=== PATIENT | female | born 1985 | race Two or more races ===

== ENCOUNTER 2020-04-05 10:53 | Outpatient (REF) | payer OTHER, SELFPAY ==
--- NOTE | 2020-04-05 10:58 | XR_ITS ---
EXAMINATION: XR FOOT, LEFT CLINICAL INFORMATION: Pain left great toe COMPARISON: None TECHNIQUE: AP, lateral, and oblique views of the left foot. FINDINGS: Bone alignment is normal. No fracture or dislocation is seen. Joint spaces are normal. Soft tissues are normal. XR/XR foot LT min 3V IMPRESSION: Normal left foot.
== END 2020-04-05 10:54 | disposition home or self-care (01) ==
LOC: HO.HMGCX 10:53
PROVIDERS: PCP Internal Medicine; Visit Provider Nurse Practitioner Family
DX: M79.675 Pain in left toe(s) (principal)
CPT/HCPCS: 73630

== ENCOUNTER 2020-06-30 11:14 | Outpatient (REF) | payer OTHER, SELFPAY ==
--- NOTE | ~2020-06-30 | XR_ITS ---
EXAMINATION: XR HAND, LEFT CLINICAL INFORMATION: Pain left digits COMPARISON: None TECHNIQUE: PA, lateral, and oblique views of the left hand. FINDINGS: There is no visible acute or healing fracture, dislocation, or destructive process. Bony mineralization normal. There is no joint narrowing or erosive change. No focal soft tissue swelling appreciated. XR/XR hand LT min 3V IMPRESSION: Normal left hand.
[2020-06-30 14:49] LABS: TSH reflex Free T4 0.86 uIU/mL (0.32-4.0)
== END 2020-06-30 11:15 | disposition home or self-care (01) ==
LOC: HO.HMGCX 11:14
PROVIDERS: PCP Internal Medicine; Visit Provider Nurse Practitioner Family
DX: M79.642 Pain in left hand (principal); E03.9 Hypothyroidism, unspecified
CPT/HCPCS: 36415; 73130; 84443

== ENCOUNTER 2020-11-03 11:03 | Outpatient (REF) | payer OTHER, SELFPAY ==
[2020-11-03 13:55] LABS: MANUAL DIFF FLAG NO
[2020-11-03 13:58] LABS: Basophils Percent Auto 0.5 % (0-2); Eosinophils Absolute Auto 0.2 X10*3/uL (0.0-0.4); Eosinophils Percent Auto 2.2 % (0-4); Hematocrit 31.7 % (37-47); Hemoglobin 9.3 g/dl (12.0-16.0); Imm Gran Abs Auto 0.03 X10*3/uL (0.00-0.03); Imm Gran Pct Auto 0.4 % (0.0-0.4); Lymphocytes Absolute Auto 1.2 X10*3/uL (1.2-4.9); Lymphocytes Percent Auto 16.3 % (20-40); Mean Corpuscular HGB Conc 29.3 g/dl (31.0-35.0); Mean Corpuscular Hemoglobin 22.2 pg (27.0-33.0); Mean Corpuscular Volume 75.8 fL (80-98); Monocytes Absolute Auto 0.5 X10*3/uL (0.1-1.2); Monocytes Percent Auto 7.3 % (2-11); Neutrophils Absolute Auto 5.4 X10*3/uL (2.0-8.3); Neutrophils Percent Auto 73.3 % (45-73); Platelet Count 320 X10*3/uL (160-400); Red Blood Count 4.18 X10*6/uL (4.20-5.50); Red Cell Distribution Width 16.1 % (11.0-16.0); White Blood Count 7.3 X10*3/uL (4.8-10.8)
[2020-11-03 14:27] LABS: Carbon Dioxide 23 mmol/L (22-29); Chloride 107 mmol/L (96-108); Potassium 4.3 mmol/L (3.3-5.1); Sodium 139 mmol/L (135-145)
[2020-11-03 14:28] LABS: Alanine Aminotransferase 8 U/L (0-31); Albumin Level 4.2 g/dL (3.5-5.0); Alkaline Phosphatase 49 U/L (39-117); Anion Gap 13 (12-20); Aspartate Amino Transferase 13 U/L (5-31); Bilirubin Total 0.5 mg/dL (0.0-1.0); Blood Urea Nitrogen 12 mg/dL (9-16); Calcium 9.1 mg/dL (8.4-10.2); Estimated Glomerular Filt Rate > 60; Glucose Random 79 mg/dL (60-115); Total Protein 7.6 g/dL (6.5-8.0)
[2020-11-03 14:52] LABS: TSH reflex Free T4 1.01 uIU/mL (0.32-4.0)
== END 2020-11-03 11:04 | disposition home or self-care (01) ==
LOC: HO.HMGCLDS 11:03
PROVIDERS: PCP Internal Medicine; Visit Provider Internal Medicine
DX: D64.9 Anemia, unspecified (principal); E03.9 Hypothyroidism, unspecified; Z91.09 Other allergy status, other than to drugs and biological substances
CPT/HCPCS: 36415; 80053; 84443; 85025

== ENCOUNTER 2021-03-25 11:43 | Outpatient (REF) | payer OTHER, SELFPAY | END 2021-03-25 11:44 | disposition home or self-care (01) | LOC: HO.LAB 11:43 | PROVIDERS: PCP Internal Medicine; Visit Provider Internal Medicine | DX: Z20.822 Contact with and (suspected) exposure to COVID-19 (principal) | CPT/HCPCS: C9803; U0003; U0005 ==

== ENCOUNTER 2021-04-10 20:11 | Emergency (ER) | payer OTHER, SELFPAY ==
--- NOTE | ~2021-04-10 | XR_ITS ---
EXAMINATION: XR CHEST CLINICAL INFORMATION: Cough shortness of breath COMPARISON: Prior chest November 2009 TECHNIQUE: Frontal view of the chest was obtained. FINDINGS: No significant abnormality is noted involving the heart, lungs, mediastinum, bony thorax or soft tissues. XR/XR chest 1V IMPRESSION: Unremarkable examination.
[2021-04-10 20:51] VITALS: BP 149/81; PULSE 84; RESP 17; TEMP 36.7; O2SAT 95; BMI 24.9
[2021-04-10 23:29] VITALS: BP 137/94; PULSE 75; RESP 17; TEMP 37; O2SAT 97
--- NOTE | 2021-04-10 23:35 | ED_ITS ---
HPI - URI/Sore Throat General Chief Complaint: Upper Respiratory Symptoms Stated Complaint: congestion, +covid 03/28 Time Seen by Provider: 04/10/21 23:12 Source: patient Mode of arrival: ambulatory Limitations: no limitations History of Present Illness HPI Narrative: Patient presents to ED coughing, wheezing. Patient states history of asthma has no albuterol inhaler at home. Patient was positive for COVID on March 25 2021. Patient denies any pleuritic chest pain, leg swelling, calf pain, coughing up blood, or shortness of breath on exertion. Related Data Previous Rx's Medication Instructions Recorded cetirizine 10 mg capsule (Zyrtec) 10 mg PO DAILY PRN 90 Days #90 cap 05/18/20 acetaminophen 500 mg tablet 1,000 mg PO Q6H PRN #60 tab 09/20/20 cyclobenzaprine 5 mg tablet 5 mg PO TID PRN #15 tab 09/20/20 ferrous sulfate 324 mg (65 mg 324 mg PO BID 90 Days #180 tab 11/29/20 iron) tablet,delayed release gabapentin 100 mg capsule 100 mg PO BEDTIME 90 Days #90 cap 01/26/21 levothyroxine 50 mcg capsule 50 mcg PO DAILY 90 Days #90 cap 03/18/21 albuterol sulfate 90 mcg/actuation 2 puff INHALATION Q6H PRN #8.5 g 04/10/21 aerosol inhaler prednisone 20 mg tablet 40 mg PO DAILY 5 Days #10 tab 04/10/21 Allergies Allergy/AdvReac Type Severity Reaction Status Date / Time aspirin Allergy Unknown SWELLING, Verified 04/10/21 20:51 facial edema Review of Systems Review of Systems: Yes all other systems are reviewed and are negative Constitutional: Constitutional: Reports as per HPI and Reports no additional constitutional complaints Eyes: Eyes: Reports as per HPI and Reports no additional eye complaints ENT: Reports system reviewed and no additional complaints, except as documented and Reports as per HPI Cardiovascular: Cardiovascular: Reports as per HPI, Reports no additional cardiovascular complaints, Denies chest pain and Denies dyspnea Respiratory: Respiratory: Reports as per HPI, Reports no additional respiratory complaints, Reports no additional respiratory complaints, Reports cough, Denies pain on inspiration, Denies pain with cough, Denies dyspnea and Reports wheezing Gastrointestinal: Gastrointestinal: Reports as per HPI and Reports no additional gastrointestinal complaints Genitourinary: Genitourinary: Reports no additional female genitourinary complaints and Reports as per HPI Musculoskeletal: Musculoskeletal: Reports no additional musculoskeletal complaints and Reports as per HPI Neurologic: Reports system reviewed and no additional complaints, except as documented and Reports as per HPI Psychiatric: Psychiatric: Reports no additional psychiatric complaints and Reports as per HPI Allergic/Immunologic: Allergic/Immunologic: Reports wheezing [facility] Past Medical History Surgical History History of bilateral tubal ligation History of partial thyroidectomy Family History Family History Father No problems noted. Mother No problems noted. Sister Diabetes mellitus Maternal Grandmother No problems noted. Maternal Grandfather No problems noted. Paternal Grandfather No problems noted. Paternal Grandmother No problems noted. Brother No problems noted. Brother No problems noted. Brother No problems noted. Brother No problems noted. Brother No problems noted. Sister No problems noted. Sister No problems noted. Sister No problems noted. Sister No problems noted. Son No problems noted. Daughter No problems noted. Daughter No problems noted. Other Mental health disorder Substance use disorder Social History Social History Housing: House Patient Tobacco Use Status: Never used Tobacco Second Hand Smoke Exposure: No Advance Directives: No Advance Directives Information Provided: Yes Patient : No Current occupational status: unemployed Physical Exam Vital Signs: Vital Signs: Last Vital Signs Temp 98.6 F 04/10/21 23:29 Pulse 75 04/10/21 23:29 Resp 17 04/10/21 23:29 BP 137/94 H 04/10/21 23:29 Pulse Ox 97 04/10/21 23:29 BMI result Body Mass Index 24.9 Const: General: cooperative and healthy appearing Orientation/consciousness: patient oriented x3 HENMT: Head: Yes normal to inspection, Yes No palpable skull fracture present, Yes normocephalic and Yes atraumatic Eyes: General: appearance normal, both eyes and all related structures Neck: Neck: Yes normal visual inspection, Yes full ROM, Yes no lymphadenopathy, Yes no meningeal signs, Yes trachea midline, Yes supple, No anterior neck swelling and No tender Chest: Chest palpation & inspection: normal inspection of the chest and normal palpation of entire chest wall Resp: Effort & Inspection: normal respiratory effort and able to speak in complete sentences Auscultation: wheezes expiratory wheezes (mild) Cardio: Jugular venous distension: no JVD Heart sounds: S1 normal heart sound present and S2 normal heart sound present GI: Inspection: Yes normal to inspection and No abdominal wall ecchymosis Palpation (GI): Soft to palpation, not firm, nontender, no guarding and not rigid : General: No CVA tenderness and Yes no CVA tenderness Back/Spine/Pelvis: Back: no CVA tenderness, No CVA tenderness and No back tenderness Skin: General skin exam: no rashes or lesions noted and elasticity normal Neuro: General: patient oriented x3, gait normal, no meningeal signs and CN's II-XI intact bilaterally Cranial nerves: Yes CN's II-XII intact bilaterally Extrem: Other: Lower extremities negative for swelling, pitting edema, or calf tenderness Psych: Appearance: grossly normal, well kempt and not disheveled Course Course Course Narrative: Patient will have x-ray ordered. Reevaluation(s) Reevaluation #1: X-ray negative for pneumonia. Patient is not tachycardic or tachypneic. Not suspecting PE. Chest x-ray negative pneumonia. Patient is 16 days out from COVID diagnosis. patient not in respiratory failure. Patient will be discharged with albuterol and steroid Time: 23:43 MDM - URI/Sore Throat MDM Narrative Medical decision making narrative: Chronic COVID symptoms. Asthma Discharge Plan Discharge Clinical Impression: COVID-19 long hauler manifesting chronic cough Patient Disposition: Home, Self-Care Instructions: Asthma (ED), Chronic Cough (ED) Additional Instructions: Yet x-ray came back negative for pneumonia. Albuterol inhaler and steroid was sent to pharmacy. Return to the ED immediately if he had pleuritic chest pain, shortness of breath on exertion, leg swelling, calf pain, coughing up blood, weakness, dizziness, intractable fever, chills, or any other concerning symptoms. Prescriptions: New prednisone 20 mg tablet 40 mg PO DAILY 5 Days Qty: 10 RF: 0 albuterol sulfate 90 mcg/actuation HFA aerosol inhaler 2 puff inhalation Q6H PRN (Reason: shortness of breath or wheezing) Qty: 8.5 RF: 0 No Action Zyrtec 10 mg capsule 10 mg PO DAILY PRN (Reason: allergy symptoms) 90 Days Qty: 90 RF: 0 ferrous sulfate 324 mg (65 mg iron) tablet,delayed release (DR/EC) 324 mg PO BID 90 Days Qty: 180 RF: 0 gabapentin 100 mg capsule 100 mg PO BEDTIME 90 Days Qty: 90 RF: 0 acetaminophen 500 mg tablet 1,000 mg PO Q6H PRN (Reason: pain) Qty: 60 RF: 0 cyclobenzaprine 5 mg tablet 5 mg PO TID PRN (Reason: muscle spasm) Qty: 15 RF: 0 levothyroxine 50 mcg capsule 50 mcg PO DAILY 90 Days Qty: 90 RF: 1 Stand Alone Forms: Work/School Release Interventions: ED Discharge Assessment Last Done: 04/11/21 00:05 Discharge Date/Time: 04/11/21 00:06 Print Language: Sami
== END 2021-04-11 00:06 | disposition home or self-care (01) ==
PROVIDERS: Emergency Provider Student in an Organized Health Care Education/Training Program; PCP Internal Medicine
DX: R05.3 Chronic cough (principal); U09.9 Post COVID-19 condition, unspecified; J45.909 Unspecified asthma, uncomplicated
CPT/HCPCS: 71045; 99283; 99284

== ENCOUNTER 2021-06-01 14:36 | Outpatient (REF) | payer OTHER, SELFPAY ==
--- NOTE | ~2021-06-01 | XR_ITS ---
EXAMINATION: XR SACRUM AND COCCYX CLINICAL INFORMATION: M53.3 - Sacrococcygeal disorders, not elsewhere classified COMPARISON: Radiographs lumbosacral spine 03/18/2019, chest radiograph 04/10/2021 TECHNIQUE: The sacrum and coccyx are imaged in 2 frontal views and a lateral view for a total of 3 views. FINDINGS: There is transitional vertebrae at L5 with bilateral sacralization similar to the prior radiographs 2019. The sacrum and coccyx show normal mineralization with no fracture or destructive process. There is no spondylolisthesis lumbosacral junction. No retrolisthesis. The SI joints show no ankylosis or erosive changes or subchondral sclerosis. Visualized hips and pubis are unremarkable.. XR/XR sacrum coccyx min 2V IMPRESSION: 1. Transitional vertebrae L5 with bilateral sacralization similar to prior radiographs 2019. 2. Unremarkable bilateral SI joints. Sacrum/coccyx unremarkable.
== END 2021-06-01 14:37 | disposition home or self-care (01) ==
LOC: HO.HMGCX 14:36
PROVIDERS: PCP Internal Medicine; Visit Provider Internal Medicine
DX: M53.3 Sacrococcygeal disorders, not elsewhere classified (principal)
CPT/HCPCS: 72220

== ENCOUNTER 2021-11-16 10:46 | Outpatient (REF) | payer OTHER, SELFPAY ==
[2021-11-16 13:41] LABS: MANUAL DIFF FLAG NO
[2021-11-16 13:44] LABS: Basophils Percent Auto 0.6 % (0-2); Eosinophils Absolute Auto 0.3 X10*3/uL (0.0-0.4); Eosinophils Percent Auto 3.7 % (0-4); Hemoglobin 11.4 g/dl (12.0-16.0); Imm Gran Abs Auto 0.01 X10*3/uL (0.00-0.03); Imm Gran Pct Auto 0.1 % (0.0-0.4); Lymphocytes Absolute Auto 1.2 X10*3/uL (1.2-4.9); Lymphocytes Percent Auto 17.9 % (20-40); Mean Corpuscular HGB Conc 31.7 g/dl (31.0-35.0); Mean Corpuscular Hemoglobin 26.3 pg (27.0-33.0); Mean Corpuscular Volume 82.9 fL (80.0-98.0); Mean Platelet Volume 9.8 fL (9.4-12.3); Monocytes Absolute Auto 0.6 X10*3/uL (0.1-1.2); Neutrophils Absolute Auto 4.6 x10*3/uL (2.0-8.3); Neutrophils Percent Auto 68.7 % (45-73); Platelet Count 381 X10*3/uL (160-400); Red Blood Count 4.34 X10*6/uL (4.20-5.50); Red Cell Distribution Width 14.4 % (11.0-16.0); White Blood Count 6.7 X10*3/uL (4.8-10.8)
[2021-11-16 14:08] LABS: Alanine Aminotransferase 17 U/L (0-31); Alkaline Phosphatase 50 U/L (39-117); Anion Gap 8 (12-20); Aspartate Amino Transferase 16 U/L (5-31); Bilirubin Total 0.5 mg/dL (0.0-1.0); Blood Urea Nitrogen 10 mg/dL (9-16); Calcium 8.8 mg/dL (8.4-10.2); Carbon Dioxide 28 mmol/L (22-29); Chloride 109 mmol/L (96-108); Estimated Glomerular Filt Rate > 60; Glucose Random 91 mg/dL (60-115); Potassium 4.2 mmol/L (3.3-5.1); Sodium 141 mmol/L (135-145); Total Protein 7.3 g/dL (6.5-8.0)
[2021-11-16 14:21] LABS: Ferritin 5 ng/mL (10-122); TSH reflex Free T4 0.97 uIU/mL (0.32-4.0)
== END 2021-11-16 10:47 | disposition home or self-care (01) ==
LOC: HO.HMGCLDS 10:46
PROVIDERS: Visit Provider Internal Medicine
DX: E03.9 Hypothyroidism, unspecified (principal); R53.83 Other fatigue
CPT/HCPCS: 36415; 80053; 82728; 84443; 85025

== ENCOUNTER 2022-03-07 08:13 | Emergency (ER) | payer OTHER, SELFPAY ==
--- NOTE | ~2022-03-07 | XR_ITS ---
EXAMINATION: XR CHEST CLINICAL INFORMATION: Cough for 2 weeks. COMPARISON: 04/10/2021 chest radiograph. TECHNIQUE: 2 views of the chest were obtained. FINDINGS: No significant abnormality is noted involving the heart, lungs, mediastinum, bony thorax or soft tissues. XR/XR chest 2V IMPRESSION: No acute cardiopulmonary process.
[2022-03-07 08:16] VITALS: BP 150/100; PULSE 101; RESP 20; TEMP 36.7; O2SAT 96; BMI 26.9
[2022-03-07 08:31] LABS: MANUAL DIFF FLAG NO
[2022-03-07 08:33] LABS: Basophils Absolute Auto 0.1 X10*3/uL (0.0-0.2); Basophils Percent Auto 0.8 % (0-2); Eosinophils Absolute Auto 0.6 X10*3/uL (0.0-0.4); Eosinophils Percent Auto 7.3 % (0-4); Hematocrit 38.3 % (37.0-47.0); Hemoglobin 12.3 g/dl (12.0-16.0); Imm Gran Abs Auto 0.02 X10*3/uL (0.00-0.03); Imm Gran Pct Auto 0.3 % (0.0-0.4); Lymphocytes Absolute Auto 1.5 X10*3/uL (1.2-4.9); Lymphocytes Percent Auto 19.7 % (20-40); Mean Corpuscular HGB Conc 32.1 g/dl (31.0-35.0); Mean Corpuscular Hemoglobin 26.5 pg (27.0-33.0); Mean Corpuscular Volume 82.5 fL (80.0-98.0); Monocytes Absolute Auto 0.5 X10*3/uL (0.1-1.2); Monocytes Percent Auto 6.3 % (2-11); Neutrophils Percent Auto 65.6 % (45-73); Platelet Count 338 X10*3/uL (160-400); Red Blood Count 4.64 X10*6/uL (4.20-5.50); Red Cell Distribution Width 14.2 % (11.0-16.0); White Blood Count 7.7 X10*3/uL (4.8-10.8)
[2022-03-07 08:56] LABS: COVID-19 Test Negative (Negative); IDNOW Serial# 16C4AD1C
[2022-03-07 08:57] LABS: Influenza A Negative (Negative); Influenza B2 Positive (Negative)
[2022-03-07 13:42] LABS: Anion Gap 10 (12-20); Blood Urea Nitrogen 9 mg/dL (9-16); Calcium 9.2 mg/dL (8.4-10.2); Carbon Dioxide 25 mmol/L (22-29); Chloride 107 mmol/L (96-108); Creatinine Clr Calc Pharmacy 107.5; Estimated Glomerular Filt Rate > 60; Glucose Random 130 mg/dL (60-115); Potassium 4.1 mmol/L (3.3-5.1); Sodium 138 mmol/L (135-145)
--- NOTE | 2022-03-07 14:13 | ED.SOB ---
HPI - SOB/Dyspnea General Chief Complaint: Dyspnea Stated Complaint: SOB/Cough Time Seen by Provider: 03/07/22 13:58 Source: patient Mode of arrival: ambulatory Limitations: no limitations History of Present Illness HPI Narrative: Patient is a 36-year-old female who presents to the emergency department for evaluation of cough and shortness of breath. Onset of symptoms was approximately 2 weeks ago. She states that she has not been getting any better. She does report a history of asthma, requiring albuterol inhaler only when she needs it. At home she does not have any inhalers or nebulizers currently. She denies any fevers, chills, nasal congestion, sore throat, ear pain, chest pain, nausea, vomiting, abdominal pain, numbness or tingling of the extremities, generalized weakness. Denies any known sick contacts. She does report that she has been having intermittent flares of her asthma since having COVID-19 1 year ago. Related Data Previous Rx's Medication Instructions Recorded mometasone-formoterol HFA 200 2 puff inhalation Q12H 30 days #13 05/03/21 mcg-5 mcg/actuation aerosol grams inhaler (Dulera) albuterol sulfate 90 mcg/actuation 2 puff inhalation Q6H PRN for 08/23/21 aerosol inhaler (ProAir HFA) wheezing #8.5 ea ferrous sulfate 324 mg (65 mg 324 mg PO BID 90 days #180 tabs 11/29/21 iron) tablet,delayed release levothyroxine 50 mcg capsule 50 mcg PO DAILY 90 days #90 caps 11/29/21 albuterol sulfate 90 mcg/actuation 2 puff inhalation Q4-6H PRN 03/07/22 aerosol inhaler shortness of breath or wheezing 10 days #6.7 grams oseltamivir 75 mg capsule 75 mg PO BID 5 days #10 caps 03/07/22 prednisone 20 mg tablet 40 mg PO DAILY #10 tabs 03/07/22 Allergies Allergy/AdvReac Type Severity Reaction Status Date / Time aspirin Allergy Unknown SWELLING, Verified 11/16/21 09:47 facial edema Review of Systems Review of Systems: Constitutional : No Fever, No Chills ENT/Mouth : No Hoarseness, No sore throat, No Rhinorrhea Eyes: No Redness, No Discharge, No Vision Changes Cardiovascular : No Chest Pain, positive SOB, no Dyspnea on Exertion, No Edema Respiratory : positive Cough, No Sputum, positive Wheezing, Gastrointestinal : No Nausea, No Vomiting, No Diarrhea, No abdominal Pain Genitourinary : No Dysuria, No Hematuria Musculoskeletal : No joint pain, No Myalgias Skin : No rash Neuro : No Weakness, No Numbness, No Headache Psych : No anxiety, depression Heme/Lymph: No Bruising, No Bleeding Endocrine : No Polyuria, No Polydipsia Yes all other systems are reviewed and are negative PMFSH Past Medical History Attestation statement: The following information was validated with the patient. Source: old records reviewed Surgical History History of bilateral tubal ligation History of partial thyroidectomy Family History Family History Father No problems noted. Mother No problems noted. Sister Diabetes mellitus Maternal Grandmother No problems noted. Maternal Grandfather No problems noted. Paternal Grandfather No problems noted. Paternal Grandmother No problems noted. Brother No problems noted. Brother No problems noted. Brother No problems noted. Brother No problems noted. Brother No problems noted. Sister No problems noted. Sister No problems noted. Sister No problems noted. Sister No problems noted. Son No problems noted. Daughter No problems noted. Daughter No problems noted. Other Mental health disorder Substance use disorder Social History Social History Housing: House Patient Tobacco Use Status: Never used Tobacco Smoked in Last 30 Days: No e-Cigarette/Vaping Use: Never Used Second Hand Smoke Exposure: No Use of substances other than those prescribed or required for medical reasons: No Advance Directives: No Advance Directives Information Provided: Yes Patient : No service: No Current occupational status: unemployed Cognitive needs: No Hearing needs: No Vision needs: No Physical Exam Vital Signs: Vital Signs: Last Vital Signs Temp 98.0 F 03/07/22 08:16 Pulse 80 03/07/22 14:23 Resp 18 03/07/22 14:23 BP 136/91 H 03/07/22 14:23 Pulse Ox 97 03/07/22 14:23 O2 Del Method 03/07/22 14:23 BMI result Body Mass Index 26.9 Appearance: Alert.?Oriented to person, place and time. No acute distress.?Normal affect. Eyes: Pupils equal, round and reactive to light.? ENT: Pharynx normal.?? Neck: Normal inspection.? Neck supple.?? CVS: Heart sounds normal. Normal heart rate and rhythm.? Pulses normal.?? Respiratory: No respiratory distress. No tachypnea, no hypoxia.? Lung sounds with bilateral expiratory wheezing throughout? Abdomen: Soft and non-tender. Normoactive bowel sounds. Skin: Skin warm and dry.? Normal skin color.? Extremities: No lower extremity edema.? No calf ttp? Neuro: Moves all extremities spontaneously. Sensation intact bilaterally. No focal neuro deficits. Ambulates with normal steady gait. Course Course Course Narrative: Patient is a 36-year-old female with a past medical history of mild intermittent asthma presenting to the emergency department for shortness of breath and cough x2 weeks. The time examination she is overall well-appearing, in no apparent distress, speaking clear full sentences. She does have expiratory wheezing bilaterally. She is able to ambulate without distress. Speaking clear full sentences. Labs obtained from triage revealed overall unremarkable CBC and BMP. COVID-19 testing is negative, chest x-ray without any acute cardiopulmonary process. Influenza B testing today is positive. She does express interest in receiving Tamiflu, in addition will send her home with a prescription for albuterol inhaler as well as prednisone. Advised outpatient follow-up with her primary care provider within the next 3-5 days. Discussed worsening signs and symptoms that she should return back to the emergency department for. All questions were answered. Patient was discharged home in stable condition. MDM - SOB/Dyspnea Medical Records Attestation: I reviewed the patient's medical records. Lab Data Attestation: I reviewed the patient's lab results. Result diagrams: 03/07/22 08:25 03/07/22 08:25 Labs: Lab Results 03/07/22 03/07/22 03/07/22 Range/Units 08:23 08:23 08:25 WBC 7.7 (4.8-10.8) X10*3/uL RBC 4.64 (4.20-5.50) X10*6/uL Hgb 12.3 (12.0-16.0) g/dl Hct 38.3 (37.0-47.0) % MCV 82.5 (80.0-98.0) fL MCH 26.5 L (27.0-33.0) pg MCHC 32.1 (31.0-35.0) g/dl RDW 14.2 (11.0-16.0) % Plt Count 338 (160-400) X10*3/uL MPV 9.0 L (9.4-12.3) fL Immature Gran % (Auto) 0.3 (0.0-0.4) % Neut % (Auto) 65.6 (45-73) % Lymph % (Auto) 19.7 L (20-40) % [place] % (Auto) 6.3 (2-11) % Eos % (Auto) 7.3 H (0-4) % Baso % (Auto) 0.8 (0-2) % Lymph # (Auto) 1.5 (1.2-4.9) X10*3/uL [place] # (Auto) 0.5 (0.1-1.2) X10*3/uL Eos # (Auto) 0.6 H (0.0-0.4) X10*3/uL Baso # (Auto) 0.1 (0.0-0.2) X10*3/uL Abs Immat Gran (auto) 0.02 (0.00-0.03) X10*3/uL Absolute Neuts (auto) 5.0 (2.0-8.3) x10*3/uL Absolute Nucleated RBC 0.000 (0.0-0.012) X10*3/uL Nucleated RBC % (auto) 0.0 (0.0-0.2) /100WBC Sodium (135-145) mmol/L Potassium (3.3-5.1) mmol/L Chloride (96-108) mmol/L Carbon Dioxide (22-29) mmol/L Anion Gap (12-20) BUN (9-16) mg/dL Creatinine (0.5-1.4) mg/dL Estim Creat Clear Calc Estimated GFR Random Glucose (60-115) mg/dL Calcium (8.4-10.2) mg/dL COVID-19 ([facility]) Negative (Negative) COVID-19 Clin Com See Note Influenza Type A ([facility]) Negative (Negative) Influenza Type B ([facility]) Positive A (Negative) Influenza A & B Note See Note 03/07/22 Range/Units 08:25 WBC (4.8-10.8) X10*3/uL RBC (4.20-5.50) X10*6/uL Hgb (12.0-16.0) g/dl Hct (37.0-47.0) % MCV (80.0-98.0) fL MCH (27.0-33.0) pg MCHC (31.0-35.0) g/dl RDW (11.0-16.0) % Plt Count (160-400) X10*3/uL MPV (9.4-12.3) fL Immature Gran % (Auto) (0.0-0.4) % Neut % (Auto) (45-73) % Lymph % (Auto) (20-40) % [place] % (Auto) (2-11) % Eos % (Auto) (0-4) % Baso % (Auto) (0-2) % Lymph # (Auto) (1.2-4.9) X10*3/uL [place] # (Auto) (0.1-1.2) X10*3/uL Eos # (Auto) (0.0-0.4) X10*3/uL Baso # (Auto) (0.0-0.2) X10*3/uL Abs Immat Gran (auto) (0.00-0.03) X10*3/uL Absolute Neuts (auto) (2.0-8.3) x10*3/uL Absolute Nucleated RBC (0.0-0.012) X10*3/uL Nucleated RBC % (auto) (0.0-0.2) /100WBC Sodium 138 (135-145) mmol/L Potassium 4.1 (3.3-5.1) mmol/L Chloride 107 (96-108) mmol/L Carbon Dioxide 25 (22-29) mmol/L Anion Gap 10 L (12-20) BUN 9 (9-16) mg/dL Creatinine 0.70 (0.5-1.4) mg/dL Estim Creat Clear Calc 107.5 Estimated GFR > 60 Random Glucose 130 H (60-115) mg/dL Calcium 9.2 (8.4-10.2) mg/dL COVID-19 ([facility]) (Negative) COVID-19 Clin Com Influenza Type A ([facility]) (Negative) Influenza Type B ([facility]) (Negative) Influenza A & B Note Imaging Data Chest x-ray: Radiologist's impression: XR/XR chest 2V IMPRESSION: No acute cardiopulmonary process. Discharge Plan Discharge Clinical Impression: Influenza B Patient Disposition: Home, Self-Care Instructions: Influenza (ED) Additional Instructions: Use albuterol inhaler every 4-6 hours as needed for shortness of breath or wheezing. Take prednisone daily with food to prevent stomach upset. Tamiflu is to be taken twice daily. Return to the emergency department any new or worsening symptoms or concerns. Follow-up with your primary care provider within 3-5 days. Prescriptions: New oseltamivir 75 mg capsule 75 mg PO BID 5 Days Qty: 10 0RF prednisone 20 mg tablet 40 mg PO DAILY Qty: 10 0RF albuterol sulfate 90 mcg/actuation HFA aerosol inhaler 2 puff inhalation Q4-6H PRN (Reason: shortness of breath or wheezing) 10 Days Qty: 6.7 0RF No Action Dulera 200-5 mcg/actuation HFA aerosol inhaler 2 puff inhalation Q12H 30 Days Qty: 13 0RF albuterol sulfate [ProAir HFA] 90 mcg/actuation HFA aerosol inhaler 2 puff inhalation Q6H PRN (Reason: for wheezing) Qty: 8.5 0RF levothyroxine 50 mcg capsule 50 mcg PO DAILY 90 Days Qty: 90 1RF ferrous sulfate 324 mg (65 mg iron) tablet,delayed release (DR/EC) 324 mg PO BID 90 Days Qty: 180 0RF Referrals: Gal Noriega MD [Primary Care Provider] - Interventions: ED Discharge Assessment Last Done: 03/07/22 14:34 Discharge Date/Time: 03/07/22 14:34
--- OUTSIDE RECORDS SUMMARY | 2022-03-07 14:20 | XMS_ITS | Continuity of Care Document ---
:1985 Author Organization [facility] Address [address] [place] [id number]- Care Team Providers Name Role Phone Gal Noriega MD Primary Care Physician Encounter [facility] Date(s): 05/01/21 - 05/02/[address] [id number]- Discharge Disposition: A-D/C Walkout Attending Physician: Not on Staff, Attending MD Admitting Physician: Not on Staff, Admitting MD Referring Physician: Not on Staff, Referring MD Allergies, Adverse Reactions, Alerts Substance Reaction Severity Status aspirin Active Medications levothyroxine 0.05 mg oral tablet 1 tablet = 50 mcg, By Mouth, Daily, 0 Refills, Maintenance, 04/14/15 12:52:48 Start Date: 04/14/15 Status: Ordered Results Radiology Reports Exam Date Time Procedure Performing Provider Status 05/01/21 4:02 PM Chest 2 Views Frontal and Lat Maeve [facility]inas [facility] (Verified) Notes:(Chest 2 Views Frontal and Lat) Reason For Exam: Fever;CoughRESULT: Chest 2 Views Frontal and Lat Chest 2 Views Frontal and Lat Hx of Present Illness: covid+ 11 29, given inhaler for SOB, cont. with dry cough, SOB and CP with cough.; Reason: Cough; Fever; Clinical Question(s): Pneumonia; COMPARISON: None. FINDINGS: LINES AND TUBES: None. LUNGS AND PLEURA: Clear lungs. Normal pulmonary vascularity. No pleural effusion. No pneumothorax. HEART, MEDIASTINUM AND MARKY: Heart is normal in size. Normal upper mediastinal and hilar contour. BONES AND SOFT TISSUES: No acute abnormality. IMPRESSION: Normal chest. WSN: [id number] Ordering Physician: Jovany Snyder MD Dictated By: Rolo Witt MD Dictated Date/Time: 05/01/21 4:07 pm Reviewed By: Rolo Witt MD Signed By: Rolo Witt MD Signed Date/Time: 05/01/21 4:07 pm Transcribed By: LUCERO Transcribed Date/Time: 05/01/21 4:05 pm Vital Signs Most recent to oldest [Reference 1 2 3 Range]: Oxygen Saturation [94-100 %] 100 % 97 % 100 % (05/02/21 12:47 AM) (05/01/21 10:26 PM) (05/01/21 6:44 PM) Pulse Rate [55-90 bpm] 74 bpm 81 bpm 89 bpm (05/02/21 12:47 AM) (05/01/21 10:26 PM) (05/01/21 6:44 PM) Blood Pressure [90-138/55-84 mm 124/82 mm Hg 130/112 mm Hg 124/84 mm Hg Hg] (05/02/21 12:47 AM) (05/01/21 10:26 PM) (05/01/21 6:44 PM) Respiratory Rate [16-30 br/min] 18 br/min 18 br/min 18 br/min (05/02/21 12:47 AM) (05/01/21 10:26 PM) (05/01/21 2:57 PM) Temperature [96.8-100.4 DegF] 97.9 DegF 98.3 DegF 98 .1 DegF (05/02/21 12:47 AM) (05/01/21 10:26 PM) (05/01/21 2:57 PM) Mode of Delivery (Oxygen) Nasal cannula Room air Room a ir (05/02/21 12:47 AM) (05/01/21 10:26 PM) (05/01/21 2:57 PM) Blood pressure sites Arm, right Arm, left Arm, left (05/02/21 12:47 AM) (05/01/21 10:26 PM) (05/01/21 2:57 PM) Temperature Route Oral Oral Oral (05/02/21 12:47 AM) (05/01/21 10:26 PM) (05/01/21 2:57 PM)
[2022-03-07 14:23] VITALS: BP 136/91; PULSE 80; RESP 18; O2SAT 97
== END 2022-03-07 14:34 | disposition home or self-care (01) ==
PROVIDERS: Emergency Provider Emergency Medicine; PCP Internal Medicine
DX: J10.1 Influenza due to other identified influenza virus with other respiratory manifestations (principal); Z20.822 Contact with and (suspected) exposure to COVID-19
CPT/HCPCS: 71046; 80048; 85025; 87502; 87635; 99283; 99284

== ENCOUNTER → 2022-06-22 14:39 | Outpatient (BNVA) | payer OTHER, SELFPAY | PROVIDERS: PCP Internal Medicine; Visit Provider Hospitalist | DX: J30.9 Allergic rhinitis, unspecified (principal); J45.40 Moderate persistent asthma, uncomplicated; R06.02 Shortness of breath; Z79.899 Other long term (current) drug therapy | CPT/HCPCS: 99202 ==

== ENCOUNTER 2022-06-30 15:06 | Outpatient (REF) | payer OTHER, SELFPAY ==
[2022-06-30 15:39] LABS: MANUAL DIFF FLAG NO
[2022-06-30 15:59] LABS: Basophils Absolute Auto 0.1 X10*3/uL (0.0-0.2); Basophils Percent Auto 0.6 % (0-2); Eosinophils Absolute Auto 0.4 X10*3/uL (0.0-0.4); Eosinophils Percent Auto 4.8 % (0-4); Hematocrit 38.8 % (37.0-47.0); Hemoglobin 12.5 g/dl (12.0-16.0); Imm Gran Abs Auto 0.02 X10*3/uL (0.00-0.03); Imm Gran Pct Auto 0.2 % (0.0-0.4); Lymphocytes Absolute Auto 1.7 X10*3/uL (1.2-4.9); Lymphocytes Percent Auto 18.6 % (20-40); Mean Corpuscular HGB Conc 32.2 g/dl (31.0-35.0); Mean Corpuscular Hemoglobin 26.4 pg (27.0-33.0); Mean Corpuscular Volume 81.9 fL (80.0-98.0); Mean Platelet Volume 9.3 fL (9.4-12.3); Monocytes Absolute Auto 0.6 X10*3/uL (0.1-1.2); Monocytes Percent Auto 6.8 % (2-11); Neutrophils Absolute Auto 6.2 x10*3/uL (2.0-8.3); Platelet Count 334 X10*3/uL (160-400); Red Blood Count 4.74 X10*6/uL (4.20-5.50); Red Cell Distribution Width 14.9 % (11.0-16.0)
[2022-06-30 16:51] LABS: Erythrocyte Sedimentation Rate 7 MM/HR (0-20)
[2022-06-30 16:56] LABS: Alanine Aminotransferase 16 U/L (0-31); Albumin Level 4.1 g/dL (3.5-5.0); Alkaline Phosphatase 61 U/L (39-117); Anion Gap 11 (12-20); Aspartate Amino Transferase 16 U/L (5-31); Bilirubin Total 0.4 mg/dL (0.0-1.0); Blood Urea Nitrogen 9 mg/dL (9-16); Calcium 9.4 mg/dL (8.4-10.2); Carbon Dioxide 26 mmol/L (22-29); Chloride 107 mmol/L (96-108); Estimated Glomerular Filt Rate > 60; Glucose Random 100 mg/dL (60-115); Iron 87 mcg/dL (30-160); Percent Iron Saturation 26 % (15-50); Potassium 3.9 mmol/L (3.3-5.1); Sodium 140 mmol/L (135-145); Total Iron Binding Capacity 335 mcg/dL (228-428); Total Protein 7.3 g/dL (6.5-8.0); Unsaturated Iron Binding 248 ug/dL
[2022-06-30 17:13] LABS: TSH reflex Free T4 0.97 uIU/mL (0.32-4.0)
[2022-07-03 16:29] LABS: TS Negative Control Passed; TS Panel A 1; TS Panel B 0; TS Positive Control Passed; TSpotTB Negative (Negative)
[2022-07-03 16:34] LABS: IgA 200 mg/dL (47-310); IgG 1675 mg/dL (600-1640); IgM 168 mg/dL (50-300)
[2022-07-03 19:29] LABS: Immunoglobulin E 574 kU/L (<OR=114)
== END 2022-06-30 15:07 | disposition home or self-care (01) ==
LOC: HO.LAB 15:06
PROVIDERS: PCP Internal Medicine; Visit Provider Hospitalist
DX: J45.909 Unspecified asthma, uncomplicated (principal); E03.9 Hypothyroidism, unspecified; D50.9 Iron deficiency anemia, unspecified; Z91.09 Other allergy status, other than to drugs and biological substances; Z11.1 Encounter for screening for respiratory tuberculosis
CPT/HCPCS: 36415; 80053; 82784; 82785; 83540; 84443; 85025; 85652; 86003; 86481

== ENCOUNTER 2022-07-07 15:47 | Outpatient (REF) | payer OTHER, SELFPAY ==
--- NOTE | 2022-07-07 17:03 | PFT_ITS ---
INDICATION: Asthma. SPIROMETRY: FEV1 to FVC 82% with an FEV1 of 3.05 L, which is 99% predicted, and FVC of 3.71 L, which is 100% predicted. There was a significant response to bronchodilators noted, also evidence of small airways disease consistent with history of asthma. Maximum voluntary ventilation 110% predicted. LUNG VOLUMES: Total lung capacity 98% predicted. DIFFUSION CAPACITY: DLCO 108% predicted. COMPARISON: None. INTERPRETATION: No obstructive nor restrictive ventilatory defect identified. There was a significant response to bronchodilators noted. Also evidence of small airways disease consistent with history of asthma. Normal maximum voluntary ventilation. Lung volumes are within normal limits. Diffusion capacity also within normal limits. Clinical correlation warranted. Bennie Finney MD MR/MODL / [id number]
== END 2022-07-07 15:48 | disposition home or self-care (01) ==
LOC: HO.RESP 15:47
PROVIDERS: PCP Internal Medicine; Visit Provider Hospitalist
DX: J45.909 Unspecified asthma, uncomplicated (principal)
CPT/HCPCS: 94060; 94727; 94729

== ENCOUNTER → 2022-08-03 14:21 | Outpatient (BNVA) | payer OTHER, SELFPAY | PROVIDERS: PCP Internal Medicine; Visit Provider Hospitalist | DX: J30.9 Allergic rhinitis, unspecified (principal); J45.40 Moderate persistent asthma, uncomplicated; R06.02 Shortness of breath | CPT/HCPCS: 99212 ==